=== PATIENT | male | born 1960 | race Caucasian/White ===

== ENCOUNTER → 2017-07-23 | Emergency (ER) | payer MEDICAID ==
[~2017-07-23] VITALS: Ht 162.6 cm; Wt 63.5 kg
[~2017-07-23] MED LIST: CLONAZEPAM1 MG PO; CYCLOBENZAPRINE10 MG PO; DICLOFENAC SODI75 MG PO; LASIX20 MG PO; METOPROLOL SUCC25 MG PO; SEROQUEL XR50 MG PO; WELLBUTRIN SR150 MG PO
== END ==
LOC: ED 01:24
DX: M75.31 Calcific tendinitis of right shoulder (principal); I10 Essential (primary) hypertension; F31.9 Bipolar disorder, unspecified; Z79.899 Other long term (current) drug therapy
CPT/HCPCS: 73030; 99283